=== PATIENT | male | born 1960 | race Caucasian/White ===

== ENCOUNTER 2021-09-24 18:28 | Inpatient (IN) | payer MEDICAID ==
[~2021-09-24] VITALS: Ht 175.3 cm; Wt 82.1 kg
[2021-09-24 20:26] LABS: Basophils # (auto) 0 10 ^3/uL (0-0.2); Eosinophils # (auto) 0 10 ^3/uL (0-0.8); Eosinophils % (auto) 0.1 % (0.0-7.0); Lymphocytes # (auto) 1.7 10 ^3/uL (0.4-5.4); Neutrophils % (auto) 82.3 % (37.0-80.0)
[2021-09-24 20:27] LABS: Basophils % (auto) 0.2 % (0.0-2.0); Hemoglobin 7.7 g/dL (13.5-17.5); Lymphocytes % (auto) 11.4 % (10.0-50.0); Mean Corpuscular Hemoglobin 25.3 pg (28.0-32.0); Mean Corpuscular Hgb Conc. 31.9 g/dL (32.0-36.0); Mean Corpuscular Volume 79.3 fL (80.0-100.0); Monocytes # (auto) 0.9 10 ^3/uL (0-1.3); Neutrophils # (auto) 12.4 10 ^3/uL (1.6-8.6); Red Blood Cells 3.02 10^6/uL (4.5-5.90); Red Cell Distribution Width 16.4 % (11.8-14.3); White Blood Cell 15.1 10^3/uL (4.4-10.8)
[2021-09-24 20:41] LABS: INR 1.1 (0.9-1.15)
[2021-09-24 20:45] LABS: Albumin 1.3 g/dL (3.4-5.0); Magnesium 2.8 mg/dL (1.6-2.6); Potassium 4.8 mmol/L (3.5-5.1)
[2021-09-24 20:49] LABS: Bilirubin, Total 0.6 mg/dL (0.2-1.0)
[2021-09-24 22:14] LABS: Urine Bacteria FEW /hpf (None Seen); Urine Blood 1+ /uL (Negative); Urine Budding Yeast FEW /hpf (None Seen); Urine Mucus FEW (None Seen); Urine WBC 868 /hpf (0 - 3); Urine WBC Clumps PRESENT /hpf (None Seen)
[2021-09-24] MEDS ORDERED: SODIUM CHLORIDE 0.9% 1,000 ML IV ONE (22:45)
[2021-09-24] MEDS ORDERED: PIPERACILLIN-TAZOB 3.375GM 100 ML IV ONE (23:15)
[2021-09-24] MEDS ORDERED: VANCOMYCIN 1GM/250ML 250 ML IV ONE (23:15)
[2021-09-24] MEDS ORDERED: IOHEXOL 300 MG/ML 100ML BOTTLE IJ ONE (23:44)
[2021-09-25] MEDS ORDERED: ONDANSETRON HCL 4 MG/2 ML VIAL IV ONE (02:00)
[2021-09-25] MEDS ORDERED: DOCUSATE SOD 100 MG CAP PO PRN (05:00)
[2021-09-25] MEDS ORDERED: TEMAZEPAM 15 MG CAP PO PRN (05:00)
[2021-09-25] MEDS ORDERED: VANCOMYCIN PER PHARMACY 0 MG IV SCH (05:00)
[2021-09-25] MEDS ORDERED: ONDANSETRON HCL 4 MG/2 ML VIAL IV PRN (05:00)
[2021-09-25] MEDS ORDERED: DEXTROSE (50%) 50ML SYRG IV PRN (05:00)
[2021-09-25] MEDS ORDERED: ACETAMINOPHEN 325 MG TAB PO PRN (05:00)
[2021-09-25] MEDS: ALBUMIN 25% 50 ML IV SCH ×3 (05:27→21:36)
[2021-09-25] MEDS: SODIUM CHLORIDE 0.9% 1,000 ML IV SCH ×2 (05:27→21:37)
[2021-09-25] MEDS ORDERED: NITROGLYCERIN 0.4 MG SL TAB SL PRN (05:45)
[2021-09-25] MEDS ORDERED: MORPHINE SULFATE INJECTION 2 MG/ML SYRG IV PRN (05:45)
[2021-09-25 06:02] LABS: Basophils # (auto) 0.1 10 ^3/uL (0-0.2); Eosinophils # (auto) 0 10 ^3/uL (0-0.8); Eosinophils % (auto) 0.1 % (0.0-7.0); Lymphocytes # (auto) 1.3 10 ^3/uL (0.4-5.4); Mean Corpuscular Hemoglobin 25.7 pg (28.0-32.0); Monocytes # (auto) 0.8 10 ^3/uL (0-1.3); Red Blood Cells 2.78 10^6/uL (4.5-5.90)
[2021-09-25 06:04] LABS: Basophils % (auto) 0.6 % (0.0-2.0); Hematocrit 21.8 % (41.0-53.0); Hemoglobin 7.1 g/dL (13.5-17.5); Lymphocytes % (auto) 9.4 % (10.0-50.0); Mean Corpuscular Hgb Conc. 32.7 g/dL (32.0-36.0); Mean Corpuscular Volume 78.6 fL (80.0-100.0); Monocytes % (auto) 5.6 % (0.0-12.0); Neutrophils # (auto) 11.8 10 ^3/uL (1.6-8.6); Neutrophils % (auto) 84.3 % (37.0-80.0); Red Cell Distribution Width 16.9 % (11.8-14.3)
[2021-09-25 06:17] LABS: Potassium 4.5 mmol/L (3.5-5.1)
[2021-09-25 06:22] LABS: BUN/Creatinine Ratio 29.6
[2021-09-25 06:23] LABS: Albumin 1.2 g/dL (3.4-5.0); Bilirubin, Total 0.5 mg/dL (0.2-1.0); Calcium 7.7 mg/dL (8.5-10.1); Magnesium 2.8 mg/dL (1.6-2.6); Total Protein 6.9 g/dL (6.4-8.2)
[2021-09-25] MEDS: InsuLIN REG 1unit/0.01ml Soln (100units/ml) SC SCH ×4 (07:00→21:39)
[2021-09-25] MEDS: ACCU-CHEK COMFORT CURVE STRIP VI SCH ×4 (07:48→22:11)
[2021-09-25] MEDS: cefTRIAXone 1GM/50ML D5W 50 ML IV SCH (09:00)
[2021-09-25] MEDS ORDERED: CEPH-509 (14:21)
[2021-09-25] MEDS ORDERED: SENN1TAB14 PO (14:21)
[2021-09-25] MEDS ORDERED: HYOS0.1293 (14:21)
[2021-09-25] MEDS ORDERED: ACET-1156 PO (14:21)
[2021-09-25] MEDS ORDERED: MORP30TA PO (14:21)
[2021-09-25] MEDS ORDERED: LORA0.5T20 GT (14:21)
[2021-09-25] MEDS ORDERED: METF-370 PO (14:21)
[2021-09-25] MEDS ORDERED: ONDA-144 PO (14:21)
[2021-09-25] MEDS: MULTIPLE VITAMIN TAB PO SCH (14:45)
[2021-09-25] MEDS: FAMOTIDINE (10MG/ML) 2ML VL IV SCH (14:45)
[2021-09-25] MEDS: ZINC SULFATE 220mg CAP or TAB PO SCH (14:45)
[2021-09-25] MEDS: ASCORBIC ACID 500 MG TAB PO SCH ×2 (14:45→21:38)
[2021-09-25] MEDS: ENOXAPARIN SOD 40 MG/0.4 ML SYRINGE SC SCH (14:45)
[2021-09-25] MEDS: AZITHROMYCIN 500MG/ 250ML 250 ML IV SCH (14:45)
[2021-09-25] MEDS: VANCOMYCIN 1GM/250ML 250 ML IV SCH (16:45)
[2021-09-25] MEDS: SUCRALFATE 1 GM/10 ML ORAL SUSP PO SCH ×2 (17:00→21:38)
[2021-09-25 17:24] VITALS: BP 91/54
[2021-09-25] MEDS: ALBUTEROL SULF 2.5 MG/0.5ML(0.5%) NEB SOLN NEB SCH ×2 (18:47→23:47)
[2021-09-25] MEDS: PANTOPRAZOLE 40 MG/10 ML VIAL INJ IV SCH (21:37)
[2021-09-25 22:07] VITALS: BP 85/41
[2021-09-26] VITALS (8 sets, daily range): BP systolic 110–129; BP diastolic 45–78
[2021-09-26] MEDS: VANCOMYCIN 1GM/250ML 250 ML IV SCH (02:00)
[2021-09-26] MEDS: InsuLIN REG 1unit/0.01ml Soln (100units/ml) SC SCH ×5 (06:47→21:57)
[2021-09-26] MEDS: SUCRALFATE 1 GM/10 ML ORAL SUSP PO SCH ×4 (06:54→21:56)
[2021-09-26] MEDS: ACCU-CHEK COMFORT CURVE STRIP VI SCH ×4 (06:54→21:56)
[2021-09-26 07:03] LABS: Eosinophils # (auto) 0 10 ^3/uL (0-0.8)
[2021-09-26 07:18] LABS: Basophils # (auto) 0.1 10 ^3/uL (0-0.2); Basophils % (auto) 0.5 % (0.0-2.0); Eosinophils % (auto) 0.5 % (0.0-7.0); Hematocrit 18.7 % (41.0-53.0); Lymphocytes # (auto) 1.3 10 ^3/uL (0.4-5.4); Lymphocytes % (auto) 13.7 % (10.0-50.0); Mean Corpuscular Hemoglobin 25.2 pg (28.0-32.0); Mean Corpuscular Hgb Conc. 32.6 g/dL (32.0-36.0); Mean Corpuscular Volume 77.3 fL (80.0-100.0); Monocytes # (auto) 0.5 10 ^3/uL (0-1.3); Monocytes % (auto) 5.9 % (0.0-12.0); Neutrophils # (auto) 7.4 10 ^3/uL (1.6-8.6); Neutrophils % (auto) 79.4 % (37.0-80.0); Red Blood Cells 2.42 10^6/uL (4.5-5.90); Red Cell Distribution Width 16.4 % (11.8-14.3); White Blood Cell 9.3 10^3/uL (4.4-10.8)
[2021-09-26 07:20] LABS: Hemoglobin 6.1 g/dL (13.5-17.5)
[2021-09-26 07:21] LABS: Albumin 1.2 g/dL (3.4-5.0); Calcium 7.2 mg/dL (8.5-10.1); Potassium 3.9 mmol/L (3.5-5.1)
[2021-09-26 07:27] LABS: BUN/Creatinine Ratio 31.5; Bilirubin, Total 0.5 mg/dL (0.2-1.0); Total Protein 6.2 g/dL (6.4-8.2)
[2021-09-26] MEDS: ALBUTEROL SULF 2.5 MG/0.5ML(0.5%) NEB SOLN NEB SCH ×3 (09:22→18:55)
[2021-09-26] MEDS: cefTRIAXone 1GM/50ML D5W 50 ML IV SCH (11:00)
[2021-09-26] MEDS: ASCORBIC ACID 500 MG TAB PO SCH ×2 (11:00→21:56)
[2021-09-26] MEDS: AZITHROMYCIN 500MG/ 250ML 250 ML IV SCH (11:00)
[2021-09-26] MEDS: MULTIPLE VITAMIN TAB PO SCH (11:00)
[2021-09-26] MEDS: FAMOTIDINE (10MG/ML) 2ML VL IV SCH (11:00)
[2021-09-26] MEDS: ZINC SULFATE 220mg CAP or TAB PO SCH (11:00)
[2021-09-26] MEDS: ENOXAPARIN SOD 40 MG/0.4 ML SYRINGE SC SCH (11:00)
[2021-09-26] MEDS: PANTOPRAZOLE 40 MG/10 ML VIAL INJ IV SCH ×2 (11:00→21:55)
[2021-09-26] MEDS: SODIUM CHLORIDE 0.9% 1,000 ML IV SCH (14:00)
[2021-09-26] MEDS ORDERED: VANCOMYCIN 1GM/250ML 250 ML IV SCH (21:00)
[2021-09-26] MEDS ORDERED: PIPERACILLIN-TAZO 4.5GM 100 ML IV SCH (22:00)
[2021-09-27] MEDS: ALBUTEROL SULF 2.5 MG/0.5ML(0.5%) NEB SOLN NEB SCH ×5 (01:09→19:01)
[2021-09-27] MEDS: HYDROcodone-ACET 5/325MG TAB PO PRN ×2 (04:09→21:09)
[2021-09-27 05:12] VITALS: BP 130/48
[2021-09-27 05:27] LABS: Basophils # (auto) 0 10 ^3/uL (0-0.2); Basophils % (auto) 0.3 % (0.0-2.0); Eosinophils # (auto) 0 10 ^3/uL (0-0.8); Eosinophils % (auto) 0.4 % (0.0-7.0); Hematocrit 22.8 % (41.0-53.0); Hemoglobin 7.4 g/dL (13.5-17.5); Lymphocytes # (auto) 1.4 10 ^3/uL (0.4-5.4); Lymphocytes % (auto) 11.8 % (10.0-50.0); Mean Corpuscular Hemoglobin 26.5 pg (28.0-32.0); Mean Corpuscular Hgb Conc. 32.7 g/dL (32.0-36.0); Monocytes # (auto) 0.6 10 ^3/uL (0-1.3); Monocytes % (auto) 4.9 % (0.0-12.0); Neutrophils # (auto) 9.5 10 ^3/uL (1.6-8.6); Neutrophils % (auto) 82.6 % (37.0-80.0); Red Blood Cells 2.81 10^6/uL (4.5-5.90); White Blood Cell 11.5 10^3/uL (4.4-10.8)
[2021-09-27 05:50] LABS: Potassium 3.9 mmol/L (3.5-5.1)
[2021-09-27 05:56] LABS: Albumin 1.2 g/dL (3.4-5.0); BUN/Creatinine Ratio 31.8; Bilirubin, Total 0.6 mg/dL (0.2-1.0); Calcium 7.4 mg/dL (8.5-10.1); Total Protein 6.4 g/dL (6.4-8.2)
[2021-09-27] MEDS: SODIUM CHLORIDE 0.9% 1,000 ML IV SCH ×2 (06:10→23:40)
[2021-09-27] MEDS: ACCU-CHEK COMFORT CURVE STRIP VI SCH ×4 (06:10→21:18)
[2021-09-27] MEDS: SUCRALFATE 1 GM/10 ML ORAL SUSP PO SCH ×4 (06:10→21:09)
[2021-09-27 08:11] VITALS: BP 112/49
[2021-09-27] MEDS: MULTIPLE VITAMIN TAB PO SCH (10:50)
[2021-09-27] MEDS: PANTOPRAZOLE 40 MG/10 ML VIAL INJ IV SCH ×2 (10:50→21:08)
[2021-09-27] MEDS: ZINC SULFATE 220mg CAP or TAB PO SCH (10:50)
[2021-09-27] MEDS: FAMOTIDINE (10MG/ML) 2ML VL IV SCH (10:50)
[2021-09-27] MEDS: ENOXAPARIN SOD 40 MG/0.4 ML SYRINGE SC SCH (10:50)
[2021-09-27] MEDS: ASCORBIC ACID 500 MG TAB PO SCH ×2 (10:50→21:09)
[2021-09-27] MEDS: InsuLIN REG 1unit/0.01ml Soln (100units/ml) SC SCH ×3 (12:00→21:18)
[2021-09-27] MEDS ORDERED: diphenhdrAMINE HCL 50 MG/1 ML VL ONE (12:12)
[2021-09-27] MEDS ORDERED: fentaNYL CITRATE 100 MCG/2 ML VL ONE (12:12)
[2021-09-27] MEDS ORDERED: MIDAZOLAM HCL 5 MG/ML-1ML VIAL ONE (12:12)
[2021-09-27] MEDS ORDERED: LIDOCAINE VISCOUS 2% 15ML UD ONE (12:12)
[2021-09-27] MEDS ORDERED: MEROPENEM 1GM IVPB 100 ML IV SCH (14:00)
[2021-09-27 15:00] VITALS: BP 105/46
[2021-09-27] MEDS: MEROPENEM 1GM IVPB 100 ML IV SCH (18:30)
[2021-09-27 22:00] VITALS: BP 104/43
[2021-09-28] MEDS: MEROPENEM 1GM IVPB 100 ML IV SCH ×3 (02:37→18:30)
[2021-09-28 04:10] VITALS: BP 125/49
[2021-09-28] MEDS: ALBUTEROL SULF 2.5 MG/0.5ML(0.5%) NEB SOLN NEB SCH ×4 (06:00→18:00)
[2021-09-28] MEDS: ACCU-CHEK COMFORT CURVE STRIP VI SCH ×4 (06:17→21:34)
[2021-09-28] MEDS: InsuLIN REG 1unit/0.01ml Soln (100units/ml) SC SCH ×4 (06:17→21:34)
[2021-09-28] MEDS: SUCRALFATE 1 GM/10 ML ORAL SUSP PO SCH ×4 (06:17→21:33)
[2021-09-28 06:54] LABS: Eosinophils # (auto) 0.1 10 ^3/uL (0-0.8); Lymphocytes # (auto) 1.4 10 ^3/uL (0.4-5.4); Monocytes # (auto) 0.7 10 ^3/uL (0-1.3); Monocytes % (auto) 6.2 % (0.0-12.0)
[2021-09-28 06:56] LABS: Basophils # (auto) 0 10 ^3/uL (0-0.2); Basophils % (auto) 0.4 % (0.0-2.0); Eosinophils % (auto) 0.7 % (0.0-7.0); Hematocrit 25.8 % (41.0-53.0); Hemoglobin 8.1 g/dL (13.5-17.5); Lymphocytes % (auto) 12.8 % (10.0-50.0); Mean Corpuscular Hemoglobin 25.8 pg (28.0-32.0); Mean Corpuscular Hgb Conc. 31.6 g/dL (32.0-36.0); Mean Corpuscular Volume 81.7 fL (80.0-100.0); Neutrophils # (auto) 8.7 10 ^3/uL (1.6-8.6); Neutrophils % (auto) 79.9 % (37.0-80.0); Red Blood Cells 3.15 10^6/uL (4.5-5.90); White Blood Cell 10.9 10^3/uL (4.4-10.8)
[2021-09-28 07:10] LABS: Albumin 1.2 g/dL (3.4-5.0); BUN/Creatinine Ratio 31.5; Calcium 7.6 mg/dL (8.5-10.1); Potassium 3.9 mmol/L (3.5-5.1)
[2021-09-28 07:13] LABS: Bilirubin, Total 0.5 mg/dL (0.2-1.0); Total Protein 6.3 g/dL (6.4-8.2)
[2021-09-28 09:00] VITALS: BP 97/54
[2021-09-28] MEDS: ASCORBIC ACID 500 MG TAB PO SCH ×2 (10:00→21:33)
[2021-09-28] MEDS ORDERED: VANCOMYCIN PER PHARMACY 0 MG IV SCH (10:45)
[2021-09-28] MEDS ORDERED: VANCOMYCIN 1GM/250ML 250 ML IV ONE ×2 (10:45→14:00)
[2021-09-28] MEDS: FAMOTIDINE (10MG/ML) 2ML VL IV SCH (10:52)
[2021-09-28] MEDS: ZINC SULFATE 220mg CAP or TAB PO SCH (10:53)
[2021-09-28] MEDS: PANTOPRAZOLE 40 MG/10 ML VIAL INJ IV SCH ×2 (10:53→21:33)
[2021-09-28] MEDS: MULTIPLE VITAMIN TAB PO SCH (10:53)
[2021-09-28] MEDS: ENOXAPARIN SOD 40 MG/0.4 ML SYRINGE SC SCH (10:54)
[2021-09-28 14:00] VITALS: BP 101/54
[2021-09-28 15:12] LABS: INR 1.24 (0.9-1.15); Partial Thromboplastin Time 37.6 sec (23.6-33.0)
[2021-09-28] MEDS ORDERED: TUBERCULIN PPD 5 UNIT/0.1 ML ID ONE (16:00)
[2021-09-28 17:00] VITALS: BP 139/52
[2021-09-28] MEDS: SODIUM CHLORIDE 0.9% 1,000 ML IV SCH (17:05)
[2021-09-28 22:53] VITALS: BP 115/44
[2021-09-29] VITALS (80 sets, daily range): BP systolic 66–128; BP diastolic 41–72
[2021-09-29] MEDS: MEROPENEM 1GM IVPB 100 ML IV SCH ×2 (03:05→10:08)
[2021-09-29] MEDS ORDERED: SUCCINYLCHOLINE CHLORIDE 20 MG/ML 10ML VIAL IV ONE ×2 (03:37→04:45)
[2021-09-29] MEDS ORDERED: ETOMIDATE (2MG/ML) 20ML VIAL IV ONE ×2 (03:37→04:45)
[2021-09-29] MEDS ORDERED: ALBUMIN 5% 0 ML IV ONE (03:48)
[2021-09-29] MEDS: PHENYLEPHRINE IV 250 ML IV SCH ×2 (04:30→21:25)
[2021-09-29 04:38] LABS: Calcium 7.2 mg/dL (8.5-10.1); Potassium 5.3 mmol/L (3.5-5.1)
[2021-09-29 04:41] LABS: Basophils # (auto) 0.1 10 ^3/uL (0-0.2); Eosinophils # (auto) 0 10 ^3/uL (0-0.8); Eosinophils % (auto) 0.1 % (0.0-7.0); Hemoglobin 7.3 g/dL (13.5-17.5)
[2021-09-29 04:41] LABS: BUN/Creatinine Ratio 21.2; Bilirubin, Total 0.4 mg/dL (0.2-1.0); Total Protein 6.7 g/dL (6.4-8.2)
[2021-09-29 04:43] LABS: Basophils % (auto) 0.6 % (0.0-2.0); Hematocrit 22.5 % (41.0-53.0); Lymphocytes # (auto) 1.4 10 ^3/uL (0.4-5.4); Lymphocytes % (auto) 12.5 % (10.0-50.0); Mean Corpuscular Hemoglobin 26.9 pg (28.0-32.0); Mean Corpuscular Hgb Conc. 32.3 g/dL (32.0-36.0); Mean Corpuscular Volume 83.3 fL (80.0-100.0); Monocytes # (auto) 0.8 10 ^3/uL (0-1.3); Neutrophils # (auto) 8.8 10 ^3/uL (1.6-8.6); Neutrophils % (auto) 79.8 % (37.0-80.0); Red Cell Distribution Width 18.3 % (11.8-14.3)
[2021-09-29] MEDS ORDERED: ACETAMINOPHEN 650 mg PER 20.3 mL UD GT PRN (04:45)
[2021-09-29] MEDS: MIDAZOLAM DRIP 50 mg/50mL 50 ML IV SCH (05:00)
[2021-09-29] MEDS: fentaNYL Drip 2500mCg/250mlNS 250 ML IV SCH ×2 (05:00→23:33)
[2021-09-29 05:06] LABS: Albumin 0.8 g/dL (3.4-5.0)
[2021-09-29] MEDS: ALBUTEROL SULF 2.5 MG/0.5ML(0.5%) NEB SOLN NEB SCH ×4 (05:36→22:06)
[2021-09-29] MEDS: SUCRALFATE 1 GM/10 ML ORAL SUSP PO SCH ×4 (05:40→21:32)
[2021-09-29] MEDS: InsuLIN REG 1unit/0.01ml Soln (100units/ml) SC SCH ×4 (05:42→21:53)
[2021-09-29] MEDS: ACCU-CHEK COMFORT CURVE STRIP VI SCH ×4 (05:42→21:48)
[2021-09-29] MEDS: NOREPINEPHRINE 8 MG/250ML KIT 250 ML IV SCH ×2 (08:00→23:29)
[2021-09-29] MEDS ORDERED: NOREPINEPHRINE 8 MG/250ML KIT 250 ML IV ONE (08:00)
[2021-09-29] MEDS: MULTIPLE VITAMIN TAB PO SCH (10:00)
[2021-09-29] MEDS: ALBUMIN 25% 100 ML IV SCH ×2 (10:00→18:00)
[2021-09-29] MEDS: FAMOTIDINE (10MG/ML) 2ML VL IV SCH (10:00)
[2021-09-29] MEDS: ENOXAPARIN SOD 40 MG/0.4 ML SYRINGE SC SCH (10:08)
[2021-09-29] MEDS: PANTOPRAZOLE 40 MG/10 ML VIAL INJ IV SCH ×2 (10:08→21:31)
[2021-09-29] MEDS: ZINC SULFATE 220mg CAP or TAB PO SCH (10:08)
[2021-09-29] MEDS: ASCORBIC ACID 500 MG TAB PO SCH ×2 (10:08→21:32)
[2021-09-29] MEDS ORDERED: VANCOMYCIN 1GM/250ML 250 ML IV SCH (14:00)
[2021-09-29] MEDS: SODIUM CHLOR 0.9% PF (SALINE LOCK) 10ML VIAL/SYR IV SCH (21:31)
[2021-09-29] MEDS: ceFAZolin 2 GM in D5W 5% 100 ML IV SCH (21:48)
[2021-09-29] MEDS: SODIUM CHLORIDE 0.9% 1,000 ML IV SCH (23:26)
[2021-09-30] VITALS (111 sets, daily range): BP systolic 75–122; BP diastolic 42–63
[2021-09-30] MEDS: SODIUM CHLORIDE 0.9% 1,000 ML IV SCH ×2 (01:40→16:16)
[2021-09-30] MEDS: ALBUMIN 25% 100 ML IV SCH (02:00)
[2021-09-30] MEDS: ALBUTEROL SULF 2.5 MG/0.5ML(0.5%) NEB SOLN NEB SCH ×5 (02:11→22:39)
[2021-09-30 03:46] LABS: Basophils # (auto) 0.1 10 ^3/uL (0-0.2); Eosinophils # (auto) 0.1 10 ^3/uL (0-0.8); Eosinophils % (auto) 1.6 % (0.0-7.0); Lymphocytes # (auto) 1.9 10 ^3/uL (0.4-5.4); Neutrophils # (auto) 5.9 10 ^3/uL (1.6-8.6)
[2021-09-30 03:48] LABS: Hematocrit 21.9 % (41.0-53.0); Lymphocytes % (auto) 22.1 % (10.0-50.0); Mean Corpuscular Hgb Conc. 31.2 g/dL (32.0-36.0); Mean Corpuscular Volume 83.1 fL (80.0-100.0); Monocytes # (auto) 0.7 10 ^3/uL (0-1.3); Monocytes % (auto) 7.8 % (0.0-12.0); Neutrophils % (auto) 67.5 % (37.0-80.0); Red Blood Cells 2.64 10^6/uL (4.5-5.90); Red Cell Distribution Width 18.4 % (11.8-14.3); White Blood Cell 8.7 10^3/uL (4.4-10.8)
[2021-09-30] MEDS: MIDAZOLAM DRIP 50 mg/50mL 50 ML IV SCH ×3 (04:00→21:58)
[2021-09-30 04:01] LABS: Hemoglobin 6.8 g/dL (13.5-17.5)
[2021-09-30 04:07] LABS: Albumin 2.2 g/dL (3.4-5.0); BUN/Creatinine Ratio 26.2; Potassium 3.4 mmol/L (3.5-5.1)
[2021-09-30 04:10] LABS: Bilirubin, Total 0.4 mg/dL (0.2-1.0); Total Protein 6.1 g/dL (6.4-8.2)
[2021-09-30] MEDS: PHENYLEPHRINE IV 250 ML IV SCH ×3 (05:45→22:25)
[2021-09-30] MEDS: InsuLIN REG 1unit/0.01ml Soln (100units/ml) SC SCH ×4 (06:10→22:00)
[2021-09-30] MEDS: ACCU-CHEK COMFORT CURVE STRIP VI SCH ×4 (06:10→22:13)
[2021-09-30] MEDS: ceFAZolin 2 GM in D5W 5% 100 ML IV SCH ×3 (06:25→22:19)
[2021-09-30] MEDS: SUCRALFATE 1 GM/10 ML ORAL SUSP PO SCH ×4 (06:26→22:13)
[2021-09-30 08:32] LABS: Hemoglobin 7.4 g/dL (13.5-17.5)
[2021-09-30 08:34] LABS: Hematocrit 23.8 % (41.0-53.0)
[2021-09-30] MEDS: NOREPINEPHRINE 8 MG/250ML KIT 250 ML IV SCH ×3 (09:07→22:50)
[2021-09-30] MEDS ORDERED: LIDOCAINE HCL 2% TOP JELLY 5ML TOP ONE (09:09)
[2021-09-30] MEDS ORDERED: EPINEPHrine HCL 1 MG/10 ML SYRG ONE (09:09)
[2021-09-30] MEDS ORDERED: EPINEPHrine HCL 1 MG/1 ML AMP ONE (09:09)
[2021-09-30] MEDS ORDERED: NALOXONE HCL 0.4 MG/ML VIAL ONE (09:09)
[2021-09-30] MEDS ORDERED: FLUMAZENIL 0.1 MG/ML INJ 10ML MDV IV ONE (09:09)
[2021-09-30] MEDS ORDERED: LIDOCAINE 2%HCL (LOCAL ANESTH.) INJ 20ML MDV ONE (09:09)
[2021-09-30] MEDS ORDERED: GLYCOPYRROLATE 0.2 MG/ML 1ML VIAL ONE (09:09)
[2021-09-30] MEDS ORDERED: fentaNYL CITRATE 100 MCG/2 ML VL ONE (09:10)
[2021-09-30] MEDS ORDERED: MIDAZOLAM HCL 5 MG/ML-1ML VIAL ONE (09:10)
[2021-09-30] MEDS: PANTOPRAZOLE 40 MG/10 ML VIAL INJ IV SCH ×2 (10:00→22:13)
[2021-09-30] MEDS: MULTIPLE VITAMIN TAB PO SCH (10:00)
[2021-09-30] MEDS: ENOXAPARIN SOD 40 MG/0.4 ML SYRINGE SC SCH (10:00)
[2021-09-30] MEDS: SODIUM CHLOR 0.9% PF (SALINE LOCK) 10ML VIAL/SYR IV SCH ×2 (10:00→22:13)
[2021-09-30] MEDS: ACETYLCYSTEINE 20%(200MG/ML) SOL 4ML NEB SCH ×2 (11:31→22:40)
[2021-09-30] MEDS ORDERED: ACETYLCYSTEINE 10 %(100MG/ML) SOL 4ML ONE (12:05)
[2021-09-30 19:39] LABS: Hemoglobin 8.9 g/dL (13.5-17.5)
[2021-09-30 19:41] LABS: Hematocrit 28.2 % (41.0-53.0)
[2021-10-01] VITALS (101 sets, daily range): BP systolic 49–123; BP diastolic 27–67
[2021-10-01] MEDS: fentaNYL Drip 2500mCg/250mlNS 250 ML IV SCH ×2 (00:32→19:45)
[2021-10-01] MEDS: NOREPINEPHRINE 8 MG/250ML KIT 250 ML IV SCH ×3 (04:11→13:17)
[2021-10-01 04:59] LABS: Basophils # (auto) 0.1 10 ^3/uL (0-0.2); Basophils % (auto) 0.9 % (0.0-2.0); Eosinophils # (auto) 0.1 10 ^3/uL (0-0.8); Eosinophils % (auto) 1.1 % (0.0-7.0); Hematocrit 26.7 % (41.0-53.0); Hemoglobin 8.9 g/dL (13.5-17.5); Lymphocytes # (auto) 1.8 10 ^3/uL (0.4-5.4); Mean Corpuscular Hemoglobin 27.5 pg (28.0-32.0); Mean Corpuscular Hgb Conc. 33.1 g/dL (32.0-36.0); Mean Corpuscular Volume 83.2 fL (80.0-100.0); Monocytes # (auto) 0.4 10 ^3/uL (0-1.3); Monocytes % (auto) 4.1 % (0.0-12.0); Neutrophils # (auto) 8.3 10 ^3/uL (1.6-8.6); Neutrophils % (auto) 76.9 % (37.0-80.0); Red Blood Cells 3.21 10^6/uL (4.5-5.90); Red Cell Distribution Width 17.2 % (11.8-14.3); White Blood Cell 10.9 10^3/uL (4.4-10.8)
[2021-10-01 05:33] LABS: Albumin 1.6 g/dL (3.4-5.0); Anion Gap 11 (5-15); Blood Urea Nitrogen 15 mg/dL (7-18); Calcium 7.4 mg/dL (8.5-10.1); Carbon Dioxide 23 mmol/L (21-32); Chloride 111 mmol/L (98-107); Glucose 140 mg/dL (74-106); Potassium 3.3 mmol/L (3.5-5.1); Sodium 145 mmol/L (136-145)
[2021-10-01 05:36] LABS: Alanine Aminotransferase < 6 U/L (16-61); Aspartate Aminotransferase 12 U/L (15-37); BUN/Creatinine Ratio 20.5; GFR African American 140 mL/min; GFR Non-African American 116 mL/min
[2021-10-01 05:39] LABS: Alkaline Phosphatase 83 U/L (45-117); Bilirubin, Total 0.3 mg/dL (0.2-1.0); Total Protein 5.7 g/dL (6.4-8.2)
[2021-10-01] MEDS: ceFAZolin 2 GM in D5W 5% 100 ML IV SCH ×3 (05:56→21:59)
[2021-10-01] MEDS: InsuLIN REG 1unit/0.01ml Soln (100units/ml) SC SCH ×4 (06:04→21:58)
[2021-10-01] MEDS: ACCU-CHEK COMFORT CURVE STRIP VI SCH ×4 (06:04→21:58)
[2021-10-01] MEDS: SUCRALFATE 1 GM/10 ML ORAL SUSP PO SCH ×4 (06:06→21:58)
[2021-10-01] MEDS: PHENYLEPHRINE IV 250 ML IV SCH (06:45)
[2021-10-01] MEDS: MIDAZOLAM DRIP 50 mg/50mL 50 ML IV SCH (09:24)
[2021-10-01] MEDS: SODIUM CHLOR 0.9% PF (SALINE LOCK) 10ML VIAL/SYR IV SCH ×2 (10:00→21:58)
[2021-10-01] MEDS: ENOXAPARIN SOD 40 MG/0.4 ML SYRINGE SC SCH (10:00)
[2021-10-01] MEDS: ALBUTEROL SULF 2.5 MG/0.5ML(0.5%) NEB SOLN NEB SCH ×3 (10:09→21:35)
[2021-10-01] MEDS: ACETYLCYSTEINE 20%(200MG/ML) SOL 4ML NEB SCH ×3 (10:09→21:35)
[2021-10-01] MEDS: PANTOPRAZOLE 40 MG/10 ML VIAL INJ IV SCH ×2 (10:12→21:58)
[2021-10-01] MEDS: MULTIPLE VITAMIN TAB PO SCH (10:13)
[2021-10-01] MEDS: ALBUMIN 25% 50 ML IV SCH ×2 (10:13→18:21)
[2021-10-01] MEDS: SODIUM CHLORIDE 0.9% 1,000 ML IV SCH (13:16)
[2021-10-01] MEDS: POTASSIUM CHL 20MEQ/50ML 50 ML IV SCH ×2 (15:54→17:34)
[2021-10-02] VITALS (90 sets, daily range): BP systolic 72–190; BP diastolic 34–80
[2021-10-02] MEDS: ALBUMIN 25% 50 ML IV SCH (01:46)
[2021-10-02] MEDS: SODIUM CHLORIDE 0.9% 1,000 ML IV SCH ×3 (03:40→20:20)
[2021-10-02 05:24] LABS: Basophils # (auto) 0.1 10 ^3/uL (0-0.2); Eosinophils # (auto) 0.1 10 ^3/uL (0-0.8); Hemoglobin 8.4 g/dL (13.5-17.5)
[2021-10-02 05:28] LABS: Basophils % (auto) 0.9 % (0.0-2.0); Eosinophils % (auto) 1.3 % (0.0-7.0); Hematocrit 25.8 % (41.0-53.0); Lymphocytes # (auto) 1.3 10 ^3/uL (0.4-5.4); Lymphocytes % (auto) 13.4 % (10.0-50.0); Mean Corpuscular Hemoglobin 27.2 pg (28.0-32.0); Mean Corpuscular Hgb Conc. 32.4 g/dL (32.0-36.0); Mean Corpuscular Volume 83.9 fL (80.0-100.0); Monocytes # (auto) 0.5 10 ^3/uL (0-1.3); Monocytes % (auto) 5.3 % (0.0-12.0); Neutrophils # (auto) 7.7 10 ^3/uL (1.6-8.6); Neutrophils % (auto) 79.1 % (37.0-80.0); Red Blood Cells 3.08 10^6/uL (4.5-5.90); White Blood Cell 9.7 10^3/uL (4.4-10.8)
[2021-10-02] MEDS: ACETYLCYSTEINE 20%(200MG/ML) SOL 4ML NEB SCH ×3 (05:41→18:03)
[2021-10-02] MEDS: ALBUTEROL SULF 2.5 MG/0.5ML(0.5%) NEB SOLN NEB SCH ×3 (05:41→18:03)
[2021-10-02 06:07] LABS: Albumin 1.9 g/dL (3.4-5.0); Anion Gap 7 (5-15); Blood Urea Nitrogen 17 mg/dL (7-18); Calcium 7.3 mg/dL (8.5-10.1); Carbon Dioxide 23 mmol/L (21-32); Chloride 116 mmol/L (98-107); Glucose 130 mg/dL (74-106); Potassium 3.4 mmol/L (3.5-5.1); Sodium 146 mmol/L (136-145)
[2021-10-02] MEDS: ceFAZolin 2 GM in D5W 5% 100 ML IV SCH (06:09)
[2021-10-02] MEDS: SUCRALFATE 1 GM/10 ML ORAL SUSP PO SCH ×4 (06:09→22:45)
[2021-10-02] MEDS: InsuLIN REG 1unit/0.01ml Soln (100units/ml) SC SCH ×4 (06:10→22:45)
[2021-10-02] MEDS: ACCU-CHEK COMFORT CURVE STRIP VI SCH ×4 (06:10→22:45)
[2021-10-02 06:12] LABS: Alanine Aminotransferase < 6 U/L (16-61); Alkaline Phosphatase 91 U/L (45-117); Aspartate Aminotransferase 8 U/L (15-37); BUN/Creatinine Ratio 19.1; Bilirubin, Total 0.4 mg/dL (0.2-1.0); GFR African American 111 mL/min; GFR Non-African American 92 mL/min; Total Protein 5.6 g/dL (6.4-8.2)
[2021-10-02] MEDS: PHENYLEPHRINE IV 250 ML IV SCH ×4 (06:17→16:05)
[2021-10-02] MEDS: NOREPINEPHRINE 8 MG/250ML KIT 250 ML IV SCH ×3 (06:18→15:56)
[2021-10-02] MEDS: PANTOPRAZOLE 40 MG/10 ML VIAL INJ IV SCH ×2 (10:25→22:45)
[2021-10-02] MEDS: SODIUM CHLOR 0.9% PF (SALINE LOCK) 10ML VIAL/SYR IV SCH ×2 (10:26→22:45)
[2021-10-02] MEDS: ENOXAPARIN SOD 40 MG/0.4 ML SYRINGE SC SCH (10:26)
[2021-10-02] MEDS: MULTIPLE VITAMIN TAB PO SCH (10:26)
[2021-10-02] MEDS: MIDAZOLAM DRIP 50 mg/50mL 50 ML IV SCH (13:11)
[2021-10-02] MEDS ORDERED: ACYCLOVIR 10MG/KG Q8HR PER RX 0 ML IV SCH (14:15)
[2021-10-02] MEDS ORDERED: MEROPENEM 1GM IVPB 100 ML IV ONE (14:45)
[2021-10-02] MEDS: fentaNYL Drip 2500mCg/250mlNS 250 ML IV SCH (15:58)
[2021-10-02] MEDS: ACYCLOVIR SOD 50MG/ML 500 MG in D5W 5% 100 ML IV SCH (17:50)
[2021-10-02] MEDS ORDERED: NAFCILLIN SOD 2GM 2 GM in SODIUM CHL 0.9% 100 ML IV SCH (18:00)
[2021-10-02] MEDS: NAFCILLIN SOD 2GM 2 GM in SODIUM CHL 0.9% 100 ML IV SCH (20:19)
[2021-10-02] MEDS: MEROPENEM 1GM IVPB 100 ML IV SCH (22:45)
[2021-10-03] VITALS (80 sets, daily range): BP systolic 95–185; BP diastolic 32–66
[2021-10-03] MEDS: NOREPINEPHRINE 8 MG/250ML KIT 250 ML IV SCH ×2 (00:15→18:34)
[2021-10-03] MEDS: MIDAZOLAM DRIP 50 mg/50mL 50 ML IV SCH ×2 (00:16→09:57)
[2021-10-03] MEDS: PHENYLEPHRINE IV 250 ML IV SCH ×3 (00:25→17:05)
[2021-10-03] MEDS: NAFCILLIN SOD 2GM 2 GM in SODIUM CHL 0.9% 100 ML IV SCH ×6 (01:00→20:18)
[2021-10-03] MEDS: ACYCLOVIR SOD 50MG/ML 500 MG in D5W 5% 100 ML IV SCH ×2 (02:54→09:57)
[2021-10-03 03:59] LABS: Basophils # (auto) 0.1 10 ^3/uL (0-0.2); Eosinophils # (auto) 0.1 10 ^3/uL (0-0.8); Hemoglobin 8.1 g/dL (13.5-17.5); Lymphocytes # (auto) 1.4 10 ^3/uL (0.4-5.4); Monocytes # (auto) 0.4 10 ^3/uL (0-1.3); White Blood Cell 8.6 10^3/uL (4.4-10.8)
[2021-10-03 04:00] LABS: Hematocrit 25.5 % (41.0-53.0); Lymphocytes % (auto) 16.7 % (10.0-50.0); Mean Corpuscular Hemoglobin 26.4 pg (28.0-32.0); Mean Corpuscular Hgb Conc. 31.8 g/dL (32.0-36.0); Mean Corpuscular Volume 83.2 fL (80.0-100.0); Monocytes % (auto) 5.1 % (0.0-12.0); Neutrophils # (auto) 6.6 10 ^3/uL (1.6-8.6); Neutrophils % (auto) 76.2 % (37.0-80.0); Red Blood Cells 3.06 10^6/uL (4.5-5.90); Red Cell Distribution Width 18.2 % (11.8-14.3)
[2021-10-03 04:13] LABS: BUN/Creatinine Ratio 20.7; Calcium 7.5 mg/dL (8.5-10.1); Potassium 3.2 mmol/L (3.5-5.1)
[2021-10-03] MEDS: MEROPENEM 1GM IVPB 100 ML IV SCH ×3 (05:44→22:47)
[2021-10-03] MEDS: ACCU-CHEK COMFORT CURVE STRIP VI SCH ×4 (05:45→22:00)
[2021-10-03] MEDS: InsuLIN REG 1unit/0.01ml Soln (100units/ml) SC SCH ×4 (05:45→22:00)
[2021-10-03] MEDS: SUCRALFATE 1 GM/10 ML ORAL SUSP PO SCH ×4 (05:45→22:48)
[2021-10-03] MEDS: ALBUTEROL SULF 2.5 MG/0.5ML(0.5%) NEB SOLN NEB SCH ×3 (05:57→22:30)
[2021-10-03] MEDS: ACETYLCYSTEINE 20%(200MG/ML) SOL 4ML NEB SCH ×3 (05:58→22:30)
[2021-10-03] MEDS ORDERED: POTASSIUM CHL 20MEQ/50ML 100 ML IV ONE (09:33)
[2021-10-03] MEDS: POTASSIUM CHL 20MEQ/50ML 50 ML IV SCH ×2 (09:56→11:11)
[2021-10-03] MEDS: SODIUM CHLOR 0.9% PF (SALINE LOCK) 10ML VIAL/SYR IV SCH ×2 (10:00→22:48)
[2021-10-03] MEDS: PANTOPRAZOLE 40 MG/10 ML VIAL INJ IV SCH ×2 (11:10→22:47)
[2021-10-03] MEDS: MULTIPLE VITAMIN TAB PO SCH (11:10)
[2021-10-03] MEDS: ENOXAPARIN SOD 40 MG/0.4 ML SYRINGE SC SCH (11:10)
[2021-10-04] VITALS (98 sets, daily range): BP systolic 82–135; BP diastolic 38–52
[2021-10-04] MEDS: PHENYLEPHRINE IV 250 ML IV SCH ×3 (01:25→18:05)
[2021-10-04] MEDS: NAFCILLIN SOD 2GM 2 GM in SODIUM CHL 0.9% 100 ML IV SCH ×6 (01:31→20:00)
[2021-10-04] MEDS: ACYCLOVIR SOD 50MG/ML 500 MG in D5W 5% 100 ML IV SCH ×4 (02:30→18:15)
[2021-10-04 03:53] LABS: Basophils # (auto) 0.1 10 ^3/uL (0-0.2); Eosinophils # (auto) 0.1 10 ^3/uL (0-0.8); Eosinophils % (auto) 1.5 % (0.0-7.0); Hemoglobin 7.8 g/dL (13.5-17.5); Monocytes # (auto) 0.4 10 ^3/uL (0-1.3); Monocytes % (auto) 5.1 % (0.0-12.0); Red Cell Distribution Width 18.4 % (11.8-14.3); White Blood Cell 8.6 10^3/uL (4.4-10.8)
[2021-10-04 03:57] LABS: Basophils % (auto) 0.9 % (0.0-2.0); Hematocrit 24.7 % (41.0-53.0); Lymphocytes # (auto) 1.9 10 ^3/uL (0.4-5.4); Lymphocytes % (auto) 21.7 % (10.0-50.0); Mean Corpuscular Hemoglobin 26.4 pg (28.0-32.0); Mean Corpuscular Hgb Conc. 31.6 g/dL (32.0-36.0); Mean Corpuscular Volume 83.5 fL (80.0-100.0); Neutrophils # (auto) 6.1 10 ^3/uL (1.6-8.6); Neutrophils % (auto) 70.8 % (37.0-80.0); Red Blood Cells 2.95 10^6/uL (4.5-5.90)
[2021-10-04 04:18] LABS: BUN/Creatinine Ratio 17.5; Calcium 7.6 mg/dL (8.5-10.1); Potassium 3.4 mmol/L (3.5-5.1)
[2021-10-04] MEDS: MIDAZOLAM DRIP 50 mg/50mL 50 ML IV SCH ×2 (04:36→12:28)
[2021-10-04] MEDS: SODIUM CHLORIDE 0.9% 1,000 ML IV SCH (05:40)
[2021-10-04] MEDS: MEROPENEM 1GM IVPB 100 ML IV SCH ×3 (06:00→21:50)
[2021-10-04] MEDS: fentaNYL Drip 2500mCg/250mlNS 250 ML IV SCH ×2 (06:00→12:36)
[2021-10-04] MEDS: NOREPINEPHRINE 8 MG/250ML KIT 250 ML IV SCH (06:01)
[2021-10-04] MEDS: ALBUTEROL SULF 2.5 MG/0.5ML(0.5%) NEB SOLN NEB SCH ×3 (06:31→19:41)
[2021-10-04] MEDS: ACETYLCYSTEINE 20%(200MG/ML) SOL 4ML NEB SCH ×3 (06:31→19:41)
[2021-10-04] MEDS: InsuLIN REG 1unit/0.01ml Soln (100units/ml) SC SCH ×4 (07:00→22:00)
[2021-10-04] MEDS: SUCRALFATE 1 GM/10 ML ORAL SUSP PO SCH ×4 (07:00→21:50)
[2021-10-04] MEDS: ACCU-CHEK COMFORT CURVE STRIP VI SCH ×4 (07:01→22:00)
[2021-10-04] MEDS: MULTIPLE VITAMIN TAB PO SCH (09:49)
[2021-10-04] MEDS: ENOXAPARIN SOD 40 MG/0.4 ML SYRINGE SC SCH (09:49)
[2021-10-04] MEDS: PANTOPRAZOLE 40 MG/10 ML VIAL INJ IV SCH ×2 (09:49→21:50)
[2021-10-04] MEDS: SODIUM CHLOR 0.9% PF (SALINE LOCK) 10ML VIAL/SYR IV SCH ×2 (09:50→21:50)
[2021-10-04] MEDS ORDERED: Glucerna 1.2 Cal 1Liter BOTTLE GT SCH (14:00)
[2021-10-04] MEDS: POTASSIUM CHL 20MEQ/50ML 50 ML IV SCH ×2 (14:34→16:30)
[2021-10-05] VITALS (97 sets, daily range): BP systolic 71–142; BP diastolic 29–55
[2021-10-05] MEDS: NAFCILLIN SOD 2GM 2 GM in SODIUM CHL 0.9% 100 ML IV SCH ×6 (01:08→19:31)
[2021-10-05] MEDS: ACYCLOVIR SOD 50MG/ML 500 MG in D5W 5% 100 ML IV SCH ×3 (02:06→17:06)
[2021-10-05] MEDS: PHENYLEPHRINE IV 250 ML IV SCH ×3 (02:07→17:04)
[2021-10-05] MEDS: InsuLIN REG 1unit/0.01ml Soln (100units/ml) SC SCH ×4 (06:14→22:00)
[2021-10-05] MEDS: SUCRALFATE 1 GM/10 ML ORAL SUSP PO SCH ×4 (06:14→20:50)
[2021-10-05] MEDS: ACCU-CHEK COMFORT CURVE STRIP VI SCH ×4 (06:14→22:01)
[2021-10-05] MEDS: MEROPENEM 1GM IVPB 100 ML IV SCH ×3 (06:14→20:50)
[2021-10-05] MEDS: NOREPINEPHRINE 8 MG/250ML KIT 250 ML IV SCH (09:58)
[2021-10-05] MEDS: SODIUM CHLOR 0.9% PF (SALINE LOCK) 10ML VIAL/SYR IV SCH ×2 (09:59→19:31)
[2021-10-05] MEDS: MULTIPLE VITAMIN TAB PO SCH (09:59)
[2021-10-05] MEDS: PANTOPRAZOLE 40 MG/10 ML VIAL INJ IV SCH ×2 (09:59→20:50)
[2021-10-05] MEDS: ACETYLCYSTEINE 20%(200MG/ML) SOL 4ML NEB SCH ×3 (14:30→22:11)
[2021-10-05] MEDS: ALBUTEROL SULF 2.5 MG/0.5ML(0.5%) NEB SOLN NEB SCH ×3 (14:30→22:11)
[2021-10-06] VITALS (93 sets, daily range): BP systolic 65–132; BP diastolic 35–60
[2021-10-06] MEDS: PHENYLEPHRINE IV 250 ML IV SCH ×4 (00:22→21:56)
[2021-10-06] MEDS: NAFCILLIN SOD 2GM 2 GM in SODIUM CHL 0.9% 100 ML IV SCH ×6 (00:22→21:40)
[2021-10-06] MEDS: ACYCLOVIR SOD 50MG/ML 500 MG in D5W 5% 100 ML IV SCH ×3 (03:54→21:40)
[2021-10-06 04:28] LABS: Hemoglobin 7.7 g/dL (13.5-17.5); Monocytes # (auto) 0.6 10 ^3/uL (0-1.3)
[2021-10-06 04:31] LABS: Basophils # (auto) 0.1 10 ^3/uL (0-0.2); Basophils % (auto) 0.7 % (0.0-2.0); Eosinophils # (auto) 0.1 10 ^3/uL (0-0.8); Eosinophils % (auto) 0.8 % (0.0-7.0); Lymphocytes # (auto) 2.4 10 ^3/uL (0.4-5.4); Lymphocytes % (auto) 14.3 % (10.0-50.0); Mean Corpuscular Hemoglobin 26.7 pg (28.0-32.0); Mean Corpuscular Hgb Conc. 32.3 g/dL (32.0-36.0); Mean Corpuscular Volume 82.8 fL (80.0-100.0); Monocytes % (auto) 3.7 % (0.0-12.0); Neutrophils # (auto) 13.6 10 ^3/uL (1.6-8.6); Neutrophils % (auto) 80.5 % (37.0-80.0); Red Blood Cells 2.89 10^6/uL (4.5-5.90); Red Cell Distribution Width 18.6 % (11.8-14.3); White Blood Cell 16.8 10^3/uL (4.4-10.8)
[2021-10-06 04:47] LABS: Potassium 3.9 mmol/L (3.5-5.1)
[2021-10-06 04:49] LABS: BUN/Creatinine Ratio 16.4
[2021-10-06] MEDS: fentaNYL Drip 2500mCg/250mlNS 250 ML IV SCH (06:00)
[2021-10-06] MEDS: MEROPENEM 1GM IVPB 100 ML IV SCH ×3 (06:17→21:46)
[2021-10-06] MEDS: MIDAZOLAM DRIP 50 mg/50mL 50 ML IV SCH ×2 (06:17→17:41)
[2021-10-06] MEDS: SUCRALFATE 1 GM/10 ML ORAL SUSP PO SCH ×4 (06:18→21:46)
[2021-10-06] MEDS: InsuLIN REG 1unit/0.01ml Soln (100units/ml) SC SCH ×4 (06:18→21:56)
[2021-10-06] MEDS: ALBUTEROL SULF 2.5 MG/0.5ML(0.5%) NEB SOLN NEB SCH ×3 (06:18→18:43)
[2021-10-06] MEDS: ACCU-CHEK COMFORT CURVE STRIP VI SCH ×4 (06:18→21:56)
[2021-10-06] MEDS: ACETYLCYSTEINE 20%(200MG/ML) SOL 4ML NEB SCH ×3 (06:19→18:43)
[2021-10-06] MEDS: NOREPINEPHRINE 8 MG/250ML KIT 250 ML IV SCH (08:00)
[2021-10-06] MEDS: SODIUM CHLOR 0.9% PF (SALINE LOCK) 10ML VIAL/SYR IV SCH ×2 (12:21→21:40)
[2021-10-06] MEDS: PANTOPRAZOLE 40 MG/10 ML VIAL INJ IV SCH ×2 (12:21→21:46)
[2021-10-06] MEDS: MULTIPLE VITAMIN TAB PO SCH (12:24)
[2021-10-07] VITALS (96 sets, daily range): BP systolic 91–138; BP diastolic 39–70
[2021-10-07] MEDS: NAFCILLIN SOD 2GM 2 GM in SODIUM CHL 0.9% 100 ML IV SCH ×6 (01:28→21:54)
[2021-10-07] MEDS: ACYCLOVIR SOD 50MG/ML 500 MG in D5W 5% 100 ML IV SCH ×3 (01:28→18:00)
[2021-10-07] MEDS: MEROPENEM 1GM IVPB 100 ML IV SCH ×3 (05:45→21:59)
[2021-10-07] MEDS: ACCU-CHEK COMFORT CURVE STRIP VI SCH ×4 (05:46→21:55)
[2021-10-07] MEDS: fentaNYL Drip 2500mCg/250mlNS 250 ML IV SCH (06:00)
[2021-10-07] MEDS: SUCRALFATE 1 GM/10 ML ORAL SUSP PO SCH ×4 (06:20→21:55)
[2021-10-07] MEDS: InsuLIN REG 1unit/0.01ml Soln (100units/ml) SC SCH ×4 (06:20→21:55)
[2021-10-07] MEDS: ACETYLCYSTEINE 20%(200MG/ML) SOL 4ML NEB SCH ×3 (06:30→21:51)
[2021-10-07] MEDS: ALBUTEROL SULF 2.5 MG/0.5ML(0.5%) NEB SOLN NEB SCH ×3 (06:30→21:51)
[2021-10-07] MEDS: NOREPINEPHRINE 8 MG/250ML KIT 250 ML IV SCH (08:00)
[2021-10-07] MEDS: PANTOPRAZOLE 40 MG/10 ML VIAL INJ IV SCH ×3 (10:00→21:54)
[2021-10-07] MEDS: SODIUM CHLOR 0.9% PF (SALINE LOCK) 10ML VIAL/SYR IV SCH ×2 (10:28→21:54)
[2021-10-07] MEDS: MULTIPLE VITAMIN TAB PO SCH (10:29)
[2021-10-07] MEDS: PHENYLEPHRINE IV 250 ML IV SCH ×2 (12:45→21:05)
[2021-10-07] MEDS ORDERED: TPN PER PHARMACY 0 ML IV SCH (16:15)
[2021-10-07] MEDS ORDERED: AMINO ACID INFUSION IN D10W 1,000 ML IV NR (20:00)
[2021-10-07 20:04] LABS: Anion Gap 7 (5-15); Blood Urea Nitrogen 41 mg/dL (7-18); Calcium 6.8 mg/dL (8.5-10.1); Carbon Dioxide 18 mmol/L (21-32); Chloride 124 mmol/L (98-107); Glucose 89 mg/dL (74-106); Magnesium 2.8 mg/dL (1.6-2.6); Potassium 4.8 mmol/L (3.5-5.1); Sodium 149 mmol/L (136-145)
[2021-10-07 20:07] LABS: Alanine Aminotransferase < 6 U/L (16-61); Alkaline Phosphatase 139 U/L (45-117); Aspartate Aminotransferase 26 U/L (15-37); BUN/Creatinine Ratio 15.1; Bilirubin, Total 2.4 mg/dL (0.2-1.0); GFR African American 31 mL/min; GFR Non-African American 25 mL/min; Phosphorus 6.7 mg/dL (2.5-4.90); Total Protein 5.8 g/dL (6.4-8.2)
[2021-10-08] VITALS (100 sets, daily range): BP systolic 87–130; BP diastolic 41–57
[2021-10-08] MEDS ORDERED: DEXTROSE (50%) 50ML SYRG IV SCH
[2021-10-08] MEDS: ACCU-CHEK COMFORT CURVE STRIP VI SCH ×4 (00:09→18:00)
[2021-10-08] MEDS: NAFCILLIN SOD 2GM 2 GM in SODIUM CHL 0.9% 100 ML IV SCH ×6 (00:15→20:50)
[2021-10-08] MEDS: ACYCLOVIR SOD 50MG/ML 500 MG in D5W 5% 100 ML IV SCH ×4 (01:41→19:56)
[2021-10-08] MEDS: fentaNYL Drip 2500mCg/250mlNS 250 ML IV SCH (01:42)
[2021-10-08] MEDS: MIDAZOLAM DRIP 50 mg/50mL 50 ML IV SCH (01:42)
[2021-10-08] MEDS: PHENYLEPHRINE IV 250 ML IV SCH ×3 (01:42→22:05)
[2021-10-08 05:09] LABS: Chloride 118 mmol/L (98-107); Potassium 3.5 mmol/L (3.5-5.1); Sodium 145 mmol/L (136-145)
[2021-10-08 05:27] LABS: Alanine Aminotransferase < 6 U/L (16-61); Alkaline Phosphatase 130 U/L (45-117); Anion Gap 9 (5-15); Aspartate Aminotransferase 16 U/L (15-37); BUN/Creatinine Ratio 15.8; Blood Urea Nitrogen 44 mg/dL (7-18); Calcium 6.6 mg/dL (8.5-10.1); Carbon Dioxide 18 mmol/L (21-32); GFR African American 30 mL/min; GFR Non-African American 25 mL/min; Glucose 358 mg/dL (74-106); Magnesium 2.7 mg/dL (1.6-2.6); Phosphorus 6.7 mg/dL (2.5-4.90); Pre Albumin < 3.0 mg/dL (20.0-40.0); Total Protein 5.8 g/dL (6.4-8.2); Triglycerides 125 mg/dL (< 150)
[2021-10-08] MEDS: ACETYLCYSTEINE 20%(200MG/ML) SOL 4ML NEB SCH ×3 (06:01→22:34)
[2021-10-08] MEDS: ALBUTEROL SULF 2.5 MG/0.5ML(0.5%) NEB SOLN NEB SCH ×3 (06:01→22:34)
[2021-10-08] MEDS: MEROPENEM 1GM IVPB 100 ML IV SCH ×3 (07:05→22:25)
[2021-10-08] MEDS: InsuLIN REG 1unit/0.01ml Soln (100units/ml) SC SCH ×4 (07:07→18:00)
[2021-10-08] MEDS: SUCRALFATE 1 GM/10 ML ORAL SUSP PO SCH ×4 (07:07→22:26)
[2021-10-08] MEDS: NOREPINEPHRINE 8 MG/250ML KIT 250 ML IV SCH ×2 (08:00→23:19)
[2021-10-08] MEDS ORDERED: POTASSIUM CHL 20MEQ/50ML 50 ML IV ONE (09:45)
[2021-10-08] MEDS: PANTOPRAZOLE 40 MG/10 ML VIAL INJ IV SCH ×2 (10:37→22:25)
[2021-10-08] MEDS: SODIUM CHLOR 0.9% PF (SALINE LOCK) 10ML VIAL/SYR IV SCH ×2 (10:37→22:26)
[2021-10-08] MEDS: MULTIPLE VITAMIN TAB PO SCH (10:38)
[2021-10-08] MEDS: SODIUM BICARBONATE 50ML VIAL 150 ML in D5W 5% 1,000 ML IV SCH (14:30)
[2021-10-08] MEDS ORDERED: AMINO ACID INFUSION IN D10W 1,000 ML IV NR (20:00)
[2021-10-08] MEDS ORDERED: TPN PER PHARMACY IV NR ×4 (20:00)
[2021-10-09] VITALS (72 sets, daily range): BP systolic 93–148; BP diastolic 43–64
[2021-10-09] MEDS: SODIUM BICARBONATE 50ML VIAL 150 ML in D5W 5% 1,000 ML IV SCH ×3 (00:18→18:00)
[2021-10-09] MEDS: ACCU-CHEK COMFORT CURVE STRIP VI SCH ×4 (00:19→17:17)
[2021-10-09] MEDS: NAFCILLIN SOD 2GM 2 GM in SODIUM CHL 0.9% 100 ML IV SCH ×7 (00:55→20:26)
[2021-10-09] MEDS: ACYCLOVIR SOD 50MG/ML 500 MG in D5W 5% 100 ML IV SCH ×3 (03:12→21:00)
[2021-10-09 04:41] LABS: Mean Corpuscular Hemoglobin 27.5 pg (28.0-32.0); Mean Corpuscular Hgb Conc. 33.1 g/dL (32.0-36.0); Mean Corpuscular Volume 82.9 fL (80.0-100.0); Red Blood Cells 2.53 10^6/uL (4.5-5.90); Red Cell Distribution Width 19.7 % (11.8-14.3); White Blood Cell 10.3 10^3/uL (4.4-10.8)
[2021-10-09] MEDS: MIDAZOLAM DRIP 50 mg/50mL 50 ML IV SCH (04:45)
[2021-10-09 04:58] LABS: Anion Gap 9 (5-15); Blood Urea Nitrogen 50 mg/dL (7-18); Calcium 6.7 mg/dL (8.5-10.1); Carbon Dioxide 20 mmol/L (21-32); Chloride 118 mmol/L (98-107); Glucose 160 mg/dL (74-106); Magnesium 1.8 mg/dL (1.6-2.6); Potassium 3.5 mmol/L (3.5-5.1); Sodium 147 mmol/L (136-145)
[2021-10-09 05:00] LABS: Alanine Aminotransferase < 6 U/L (16-61); Aspartate Aminotransferase 14 U/L (15-37); BUN/Creatinine Ratio 16.4; GFR African American 27 mL/min; GFR Non-African American 22 mL/min
[2021-10-09 05:03] LABS: Alkaline Phosphatase 106 U/L (45-117); Bilirubin, Total 2.2 mg/dL (0.2-1.0); Phosphorus 5.9 mg/dL (2.5-4.90); Total Protein 5.6 g/dL (6.4-8.2)
[2021-10-09 05:23] LABS: Albumin 0.9 g/dL (3.4-5.0)
[2021-10-09 05:25] LABS: Basophils % (manual) 0 (0.0-2.0); Blast Cells 0; Promyelocytes % 0; Reactive Lymphocytes 0
[2021-10-09] MEDS: InsuLIN REG 1unit/0.01ml Soln (100units/ml) SC SCH ×4 (05:39→17:17)
[2021-10-09] MEDS: SUCRALFATE 1 GM/10 ML ORAL SUSP PO SCH ×4 (05:40→22:30)
[2021-10-09] MEDS: MEROPENEM 1GM IVPB 100 ML IV SCH ×3 (05:41→22:31)
[2021-10-09] MEDS: PHENYLEPHRINE IV 250 ML IV SCH ×3 (06:25→23:05)
[2021-10-09] MEDS: ALBUTEROL SULF 2.5 MG/0.5ML(0.5%) NEB SOLN NEB SCH ×3 (06:36→22:45)
[2021-10-09] MEDS: ACETYLCYSTEINE 20%(200MG/ML) SOL 4ML NEB SCH ×3 (06:36→22:45)
[2021-10-09 06:44] LABS: Band Neutrophils % (manual) 4; Eosinophils % (manual) 4 (0-7); Lymphocytes % (manual) 22 (10.0-50.0); Metamyelocytes % 1; Monocytes % (manual) 2 (0-12); Myelocytes % 1
[2021-10-09] MEDS: PANTOPRAZOLE 40 MG/10 ML VIAL INJ IV SCH ×2 (10:00→22:30)
[2021-10-09] MEDS: MULTIPLE VITAMIN TAB PO SCH (10:06)
[2021-10-09] MEDS: SODIUM CHLOR 0.9% PF (SALINE LOCK) 10ML VIAL/SYR IV SCH ×2 (10:07→22:00)
[2021-10-09] MEDS: ALBUMIN 25% 100 ML IV SCH ×2 (11:50→21:20)
[2021-10-09] MEDS: FREE WATER GT SCH ×2 (17:23→22:00)
[2021-10-09 18:17] LABS: Urine Bacteria FEW /hpf (None Seen); Urine Blood 1+ /uL (Negative); Urine Budding Yeast MANY /hpf (None Seen); Urine Specific Gravity 1.014 (1.001-1.035); Urine WBC 111 /hpf (0 - 3)
[2021-10-09 18:52] LABS: Protein, Urine 187.9 mg/dL (0.0-11.9)
[2021-10-09] MEDS ORDERED: TPN PER PHARMACY IV NR ×8 (20:00)
[2021-10-10] VITALS (95 sets, daily range): BP systolic 93–138; BP diastolic 41–62
[2021-10-10] MEDS: ACCU-CHEK COMFORT CURVE STRIP VI SCH ×5 (00:14→23:32)
[2021-10-10] MEDS: NAFCILLIN SOD 2GM 2 GM in SODIUM CHL 0.9% 100 ML IV SCH ×7 (00:14→23:32)
[2021-10-10] MEDS: InsuLIN REG 1unit/0.01ml Soln (100units/ml) SC SCH ×5 (00:14→23:32)
[2021-10-10] MEDS: ACYCLOVIR SOD 50MG/ML 500 MG in D5W 5% 100 ML IV SCH ×3 (02:24→18:34)
[2021-10-10] MEDS: FREE WATER GT SCH ×6 (02:24→20:23)
[2021-10-10] MEDS: SODIUM BICARBONATE 50ML VIAL 150 ML in D5W 5% 1,000 ML IV SCH (03:30)
[2021-10-10 04:18] LABS: Basophils # (auto) 0 10 ^3/uL (0-0.2); Eosinophils # (auto) 0.2 10 ^3/uL (0-0.8); Hemoglobin 7.4 g/dL (13.5-17.5); Lymphocytes # (auto) 0.9 10 ^3/uL (0.4-5.4); Monocytes # (auto) 0.2 10 ^3/uL (0-1.3); Neutrophils # (auto) 4.9 10 ^3/uL (1.6-8.6); Nucleated Red Blood Cells % 0.1 %; Red Cell Distribution Width 19.5 % (11.8-14.3); White Blood Cell 6.2 10^3/uL (4.4-10.8)
[2021-10-10 04:21] LABS: Basophils % (auto) 0.6 % (0.0-2.0); Eosinophils % (auto) 2.5 % (0.0-7.0); Hematocrit 21.4 % (41.0-53.0); Mean Corpuscular Hemoglobin 28.5 pg (28.0-32.0); Mean Corpuscular Hgb Conc. 34.6 g/dL (32.0-36.0); Mean Corpuscular Volume 82.2 fL (80.0-100.0); Monocytes % (auto) 2.5 % (0.0-12.0); Neutrophils % (auto) 79.4 % (37.0-80.0)
[2021-10-10 04:35] LABS: Chloride 112 mmol/L (98-107); Sodium 144 mmol/L (136-145)
[2021-10-10 04:44] LABS: Alanine Aminotransferase < 6 U/L (16-61); Albumin 1.3 g/dL (3.4-5.0); Alkaline Phosphatase 79 U/L (45-117); Anion Gap 10 (5-15); Aspartate Aminotransferase 10 U/L (15-37); BUN/Creatinine Ratio 17.3; Bilirubin, Total 1.7 mg/dL (0.2-1.0); Blood Urea Nitrogen 53 mg/dL (7-18); Calcium 6.2 mg/dL (8.5-10.1); Carbon Dioxide 22 mmol/L (21-32); GFR African American 27 mL/min; GFR Non-African American 22 mL/min; Glucose 160 mg/dL (74-106); Magnesium 2.2 mg/dL (1.6-2.6); Phosphorus 5.4 mg/dL (2.5-4.90)
[2021-10-10] MEDS: MIDAZOLAM DRIP 50 mg/50mL 50 ML IV SCH (04:45)
[2021-10-10 04:48] LABS: Potassium 2.7 mmol/L (3.5-5.1)
[2021-10-10] MEDS: MEROPENEM 1GM IVPB 100 ML IV SCH ×3 (05:23→22:10)
[2021-10-10] MEDS: SUCRALFATE 1 GM/10 ML ORAL SUSP PO SCH ×4 (05:23→20:25)
[2021-10-10] MEDS ORDERED: POTASSIUM CHL 20MEQ/50ML 50 ML IV ONE (06:07)
[2021-10-10] MEDS: PHENYLEPHRINE IV 250 ML IV SCH ×2 (07:25→15:45)
[2021-10-10] MEDS: ACETYLCYSTEINE 20%(200MG/ML) SOL 4ML NEB SCH ×3 (07:48→18:23)
[2021-10-10] MEDS: ALBUTEROL SULF 2.5 MG/0.5ML(0.5%) NEB SOLN NEB SCH ×3 (07:48→18:23)
[2021-10-10] MEDS: POTASSIUM CHL 20MEQ/50ML 50 ML IV SCH ×2 (08:44→10:20)
[2021-10-10] MEDS: ALBUMIN 25% 100 ML IV SCH ×2 (10:24→20:24)
[2021-10-10] MEDS: PANTOPRAZOLE 40 MG/10 ML VIAL INJ IV SCH ×2 (10:28→20:25)
[2021-10-10] MEDS: SODIUM CHLOR 0.9% PF (SALINE LOCK) 10ML VIAL/SYR IV SCH ×2 (10:28→20:25)
[2021-10-10] MEDS: MULTIPLE VITAMIN TAB PO SCH (10:29)
[2021-10-10] MEDS ORDERED: CALCIUM GLUC 1,000mg/50ml-NS 50 ML IV ONE (14:00)
[2021-10-10] MEDS: NOREPINEPHRINE 8 MG/250ML KIT 250 ML IV SCH (14:59)
[2021-10-10] MEDS ORDERED: TPN PER PHARMACY IV NR ×6 (20:00)
[2021-10-11] VITALS (58 sets, daily range): BP systolic 95–147; BP diastolic 45–64
[2021-10-11] MEDS: PHENYLEPHRINE IV 250 ML IV SCH ×3 (00:05→16:45)
[2021-10-11] MEDS: ACYCLOVIR SOD 50MG/ML 500 MG in D5W 5% 100 ML IV SCH ×3 (01:28→16:41)
[2021-10-11] MEDS: FREE WATER GT SCH ×6 (01:28→22:18)
[2021-10-11] MEDS: NAFCILLIN SOD 2GM 2 GM in SODIUM CHL 0.9% 100 ML IV SCH ×5 (03:24→22:14)
[2021-10-11 04:35] LABS: Basophils # (auto) 0 10 ^3/uL (0-0.2); Eosinophils # (auto) 0.2 10 ^3/uL (0-0.8); Monocytes # (auto) 0.2 10 ^3/uL (0-1.3); Nucleated Red Blood Cells % 0.1 %; White Blood Cell 6.3 10^3/uL (4.4-10.8)
[2021-10-11 04:38] LABS: Basophils % (auto) 0.7 % (0.0-2.0); Eosinophils % (auto) 3.4 % (0.0-7.0); Hematocrit 21.1 % (41.0-53.0); Hemoglobin 7.4 g/dL (13.5-17.5); Lymphocytes # (auto) 1.4 10 ^3/uL (0.4-5.4); Lymphocytes % (auto) 21.8 % (10.0-50.0); Mean Corpuscular Hemoglobin 28.8 pg (28.0-32.0); Mean Corpuscular Hgb Conc. 35.4 g/dL (32.0-36.0); Mean Corpuscular Volume 81.4 fL (80.0-100.0); Monocytes % (auto) 3.4 % (0.0-12.0); Neutrophils # (auto) 4.4 10 ^3/uL (1.6-8.6); Neutrophils % (auto) 70.7 % (37.0-80.0); Red Blood Cells 2.59 10^6/uL (4.5-5.90); Red Cell Distribution Width 19.4 % (11.8-14.3)
[2021-10-11 04:45] LABS: Alanine Aminotransferase < 6 U/L (16-61); Albumin 1.4 g/dL (3.4-5.0); Anion Gap 11 (5-15); Aspartate Aminotransferase 13 U/L (15-37); BUN/Creatinine Ratio 17.4; Blood Urea Nitrogen 55 mg/dL (7-18); Calcium 6.4 mg/dL (8.5-10.1); Carbon Dioxide 22 mmol/L (21-32); Chloride 109 mmol/L (98-107); GFR African American 26 mL/min; GFR Non-African American 21 mL/min; Glucose 125 mg/dL (74-106); Magnesium 1.5 mg/dL (1.6-2.6); Sodium 142 mmol/L (136-145)
[2021-10-11] MEDS: MIDAZOLAM DRIP 50 mg/50mL 50 ML IV SCH (04:45)
[2021-10-11 04:48] LABS: Alkaline Phosphatase 67 U/L (45-117); Bilirubin, Total 1.8 mg/dL (0.2-1.0); Phosphorus 3.8 mg/dL (2.5-4.90); Total Protein 4.7 g/dL (6.4-8.2)
[2021-10-11 04:59] LABS: Potassium 2.9 mmol/L (3.5-5.1)
[2021-10-11] MEDS: ACCU-CHEK COMFORT CURVE STRIP VI SCH ×3 (05:27→18:21)
[2021-10-11] MEDS: InsuLIN REG 1unit/0.01ml Soln (100units/ml) SC SCH ×3 (05:28→18:19)
[2021-10-11] MEDS: SUCRALFATE 1 GM/10 ML ORAL SUSP PO SCH ×4 (05:30→22:17)
[2021-10-11] MEDS: ACETYLCYSTEINE 20%(200MG/ML) SOL 4ML NEB SCH ×3 (05:35→22:00)
[2021-10-11] MEDS: ALBUTEROL SULF 2.5 MG/0.5ML(0.5%) NEB SOLN NEB SCH ×3 (05:36→22:00)
[2021-10-11] MEDS: MEROPENEM 1GM IVPB 100 ML IV SCH ×3 (06:00→22:19)
[2021-10-11] MEDS ORDERED: POTASSIUM CHL 20MEQ/50ML 50 ML IV ONE (06:12)
[2021-10-11] MEDS: POTASSIUM CHL 20MEQ/50ML 50 ML IV SCH ×2 (06:15→08:15)
[2021-10-11] MEDS: SODIUM BICARBONATE 50ML VIAL 150 ML in D5W 5% 1,000 ML IV SCH ×3 (08:45→20:15)
[2021-10-11] MEDS ORDERED: POTASSIUM EFFERVESENT TAB 25 MEQ GT ONE (09:00)
[2021-10-11] MEDS: ALBUMIN 25% 100 ML IV SCH (09:26)
[2021-10-11] MEDS: PANTOPRAZOLE 40 MG/10 ML VIAL INJ IV SCH ×2 (09:26→22:16)
[2021-10-11] MEDS: SODIUM CHLOR 0.9% PF (SALINE LOCK) 10ML VIAL/SYR IV SCH ×2 (09:27→22:16)
[2021-10-11] MEDS: MAGNESIUM SULFATE 1GM/100ML 100 ML IV SCH ×2 (09:28→11:57)
[2021-10-11] MEDS: MULTIPLE VITAMIN TAB PO SCH (09:36)
[2021-10-11] MEDS: NOREPINEPHRINE 8 MG/250ML KIT 250 ML IV SCH (16:53)
[2021-10-11] MEDS ORDERED: TPN PER PHARMACY IV NR ×9 (20:00)
[2021-10-12] VITALS (83 sets, daily range): BP systolic 89–152; BP diastolic 47–66
[2021-10-12] MEDS: PHENYLEPHRINE IV 250 ML IV SCH (01:05)
[2021-10-12] MEDS: ACYCLOVIR SOD 50MG/ML 500 MG in D5W 5% 100 ML IV SCH ×3 (02:00→09:25)
[2021-10-12] MEDS: NAFCILLIN SOD 2GM 2 GM in SODIUM CHL 0.9% 100 ML IV SCH ×6 (02:18→21:54)
[2021-10-12] MEDS: FREE WATER GT SCH ×6 (02:20→21:53)
[2021-10-12] MEDS: MIDAZOLAM DRIP 50 mg/50mL 50 ML IV SCH (04:31)
[2021-10-12 04:51] LABS: Basophils # (auto) 0 10 ^3/uL (0-0.2); Eosinophils # (auto) 0.2 10 ^3/uL (0-0.8); Monocytes # (auto) 0.3 10 ^3/uL (0-1.3); Monocytes % (auto) 4.3 % (0.0-12.0); Red Blood Cells 2.51 10^6/uL (4.5-5.90); White Blood Cell 5.9 10^3/uL (4.4-10.8)
[2021-10-12 04:56] LABS: Basophils % (auto) 0.4 % (0.0-2.0); Eosinophils % (auto) 3.5 % (0.0-7.0); Hematocrit 20.5 % (41.0-53.0); Lymphocytes # (auto) 1.2 10 ^3/uL (0.4-5.4); Lymphocytes % (auto) 20.4 % (10.0-50.0); Mean Corpuscular Hemoglobin 27.5 pg (28.0-32.0); Mean Corpuscular Hgb Conc. 33.7 g/dL (32.0-36.0); Mean Corpuscular Volume 81.7 fL (80.0-100.0); Neutrophils # (auto) 4.2 10 ^3/uL (1.6-8.6); Neutrophils % (auto) 71.4 % (37.0-80.0)
[2021-10-12 05:18] LABS: Chloride 104 mmol/L (98-107); Potassium 3.4 mmol/L (3.5-5.1); Sodium 139 mmol/L (136-145)
[2021-10-12 05:31] LABS: Alanine Aminotransferase < 6 U/L (16-61); Albumin 1.2 g/dL (3.4-5.0); Alkaline Phosphatase 65 U/L (45-117); Anion Gap 9 (5-15); Aspartate Aminotransferase 12 U/L (15-37); BUN/Creatinine Ratio 17.4; Bilirubin, Total 1.7 mg/dL (0.2-1.0); Blood Urea Nitrogen 53 mg/dL (7-18); Calcium 6.3 mg/dL (8.5-10.1); Carbon Dioxide 26 mmol/L (21-32); GFR African American 27 mL/min; GFR Non-African American 22 mL/min; Glucose 127 mg/dL (74-106); Magnesium 1.7 mg/dL (1.6-2.6); Phosphorus 3.4 mg/dL (2.5-4.90); Total Protein 4.4 g/dL (6.4-8.2)
[2021-10-12] MEDS: ACCU-CHEK COMFORT CURVE STRIP VI SCH ×4 (05:42→17:33)
[2021-10-12] MEDS: SUCRALFATE 1 GM/10 ML ORAL SUSP PO SCH ×4 (05:43→21:54)
[2021-10-12] MEDS: InsuLIN REG 1unit/0.01ml Soln (100units/ml) SC SCH ×4 (05:43→17:33)
[2021-10-12] MEDS: SODIUM BICARBONATE 50ML VIAL 150 ML in D5W 5% 1,000 ML IV SCH (05:44)
[2021-10-12] MEDS: MEROPENEM 1GM IVPB 100 ML IV SCH (05:44)
[2021-10-12 06:40] LABS: Hemoglobin 6.9 g/dL (13.5-17.5); Red Cell Distribution Width 20.2 % (11.8-14.3)
[2021-10-12] MEDS: PANTOPRAZOLE 40 MG/10 ML VIAL INJ IV SCH ×2 (09:11→21:54)
[2021-10-12] MEDS: MULTIPLE VITAMIN TAB PO SCH (09:11)
[2021-10-12] MEDS: SODIUM CHLOR 0.9% PF (SALINE LOCK) 10ML VIAL/SYR IV SCH ×2 (09:11→21:54)
[2021-10-12] MEDS ORDERED: POTASSIUM CHL 20MEQ/50ML 50 ML IV ONE (09:15)
[2021-10-12] MEDS ORDERED: TPN PER PHARMACY IV NR ×8 (20:00)
[2021-10-12] MEDS: ALBUTEROL SULF 2.5 MG/0.5ML(0.5%) NEB SOLN NEB SCH (22:29)
[2021-10-12] MEDS: ACETYLCYSTEINE 20%(200MG/ML) SOL 4ML NEB SCH (22:30)
[2021-10-12 23:04] LABS: Hematocrit 18.4 % (41.0-53.0)
[2021-10-12 23:12] LABS: Hemoglobin 6.3 g/dL (13.5-17.5)
[2021-10-13] VITALS (41 sets, daily range): BP systolic 42–166; BP diastolic 16–67
[2021-10-13] MEDS: FREE WATER GT SCH ×2 (02:00→06:25)
[2021-10-13 04:18] LABS: Basophils # (auto) 0 10 ^3/uL (0-0.2); Basophils % (auto) 0.5 % (0.0-2.0); Eosinophils # (auto) 0.2 10 ^3/uL (0-0.8); Hematocrit 18.1 % (41.0-53.0); Neutrophils # (auto) 4.3 10 ^3/uL (1.6-8.6)
[2021-10-13 04:21] LABS: Eosinophils % (auto) 3.5 % (0.0-7.0); Lymphocytes # (auto) 1.5 10 ^3/uL (0.4-5.4); Lymphocytes % (auto) 23.4 % (10.0-50.0); Mean Corpuscular Hemoglobin 29.4 pg (28.0-32.0); Mean Corpuscular Hgb Conc. 35.8 g/dL (32.0-36.0); Monocytes # (auto) 0.3 10 ^3/uL (0-1.3); Neutrophils % (auto) 67.6 % (37.0-80.0); Nucleated Red Blood Cells % 0.1 %; White Blood Cell 6.3 10^3/uL (4.4-10.8)
[2021-10-13] MEDS: SODIUM BICARBONATE 50ML VIAL 150 ML in D5W 5% 1,000 ML IV SCH (04:29)
[2021-10-13] MEDS: NAFCILLIN SOD 2GM 2 GM in SODIUM CHL 0.9% 100 ML IV SCH ×4 (04:30→08:00)
[2021-10-13 04:33] LABS: Blood Urea Nitrogen 53 mg/dL (7-18); Chloride 100 mmol/L (98-107); Glucose 135 mg/dL (74-106); Hemoglobin 6.5 g/dL (13.5-17.5); Potassium 3.4 mmol/L (3.5-5.1); Sodium 136 mmol/L (136-145)
[2021-10-13 04:39] LABS: Alanine Aminotransferase < 6 U/L (16-61); Alkaline Phosphatase 65 U/L (45-117); Anion Gap 6 (5-15); Aspartate Aminotransferase 11 U/L (15-37); BUN/Creatinine Ratio 16.9; Bilirubin, Total 1.2 mg/dL (0.2-1.0); Calcium 6.5 mg/dL (8.5-10.1); Carbon Dioxide 30 mmol/L (21-32); GFR African American 26 mL/min; GFR Non-African American 21 mL/min; Phosphorus 3.4 mg/dL (2.5-4.90); Total Protein 4.5 g/dL (6.4-8.2)
[2021-10-13] MEDS: InsuLIN REG 1unit/0.01ml Soln (100units/ml) SC SCH ×2 (06:00)
[2021-10-13] MEDS: ACETYLCYSTEINE 20%(200MG/ML) SOL 4ML NEB SCH (06:04)
[2021-10-13] MEDS: ALBUTEROL SULF 2.5 MG/0.5ML(0.5%) NEB SOLN NEB SCH (06:04)
[2021-10-13] MEDS: ACCU-CHEK COMFORT CURVE STRIP VI SCH ×2 (06:25)
[2021-10-13] MEDS: SUCRALFATE 1 GM/10 ML ORAL SUSP PO SCH (07:00)
[2021-10-13] MEDS ORDERED: MORPHINE SULFATE INJECTION 2 MG/ML SYRG IV PRN (10:00)
[2021-10-13] MEDS ORDERED: LORazepam 2MG/ML-1ML VIAL IV PRN (10:00)
== END 2021-10-13 17:21 | DRG 720 ==
LOC: EDBD 18:28 → ER 18:28 → OVERFLOW 09-25 05:35 → CENTRAL 09-25 06:30 → WEST WING 09-28 07:37 → ICU WEST 09-29 04:20
PROVIDERS: ADMIT Nurse Practitioner Family; ATTEND Family Medicine
PROC: 30233N0 Transfusion of Autologous Red Blood Cells into Peripheral Vein, Percutaneous Approach (ICD-10-PCS; 2021-09-26)
PROC: 0DB58ZX Excision of Esophagus, Via Natural or Artificial Opening Endoscopic, Diagnostic (ICD-10-PCS; 2021-09-27)
PROC: 0DB68ZX Excision of Stomach, Via Natural or Artificial Opening Endoscopic, Diagnostic (ICD-10-PCS; 2021-09-27)
PROC: 0DB98ZX Excision of Duodenum, Via Natural or Artificial Opening Endoscopic, Diagnostic (ICD-10-PCS; 2021-09-27)
PROC: 5A1955Z Respiratory Ventilation, Greater than 96 Consecutive Hours (ICD-10-PCS; principal; 2021-09-29)
PROC: 02HV33Z Insertion of Infusion Device into Superior Vena Cava, Percutaneous Approach (ICD-10-PCS; 2021-09-29)
PROC: 0BH17EZ Insertion of Endotracheal Airway into Trachea, Via Natural or Artificial Opening (ICD-10-PCS; 2021-09-29)
PROC: 0W9930Z Drainage of Right Pleural Cavity with Drainage Device, Percutaneous Approach (ICD-10-PCS; 2021-09-30)
PROC: 0BC18ZZ Extirpation of Matter from Trachea, Via Natural or Artificial Opening Endoscopic (ICD-10-PCS; 2021-09-30)
PROC: 0BCB8ZZ Extirpation of Matter from Left Lower Lobe Bronchus, Via Natural or Artificial Opening Endoscopic (ICD-10-PCS; 2021-09-30)
PROC: 0BC68ZZ Extirpation of Matter from Right Lower Lobe Bronchus, Via Natural or Artificial Opening Endoscopic (ICD-10-PCS; 2021-09-30)
DX: A41.01 Sepsis due to Methicillin susceptible Staphylococcus aureus (principal); J96.01 Acute respiratory failure with hypoxia; R65.21 Severe sepsis with septic shock; J86.9 Pyothorax without fistula; E43 Unspecified severe protein-calorie malnutrition; N17.9 Acute kidney failure, unspecified; L89.153 Pressure ulcer of sacral region, stage 3; J15.1 Pneumonia due to Pseudomonas; D62 Acute posthemorrhagic anemia; E87.1 Hypo-osmolality and hyponatremia; D63.8 Anemia in other chronic diseases classified elsewhere; N39.0 Urinary tract infection, site not specified; T83.511A Infection and inflammatory reaction due to indwelling urethral catheter, initial encounter; Z20.822 Contact with and (suspected) exposure to COVID-19; B96.4 Proteus (mirabilis) (morganii) as the cause of diseases classified elsewhere; K44.9 Diaphragmatic hernia without obstruction or gangrene; D50.9 Iron deficiency anemia, unspecified; R62.7 Adult failure to thrive; K22.10 Ulcer of esophagus without bleeding; Z74.01 Bed confinement status; Z79.4 Long term (current) use of insulin; Z79.84 Long term (current) use of oral hypoglycemic drugs; Z68.20 Body mass index [BMI] 20.0-20.9, adult; Z82.49 Family history of ischemic heart disease and other diseases of the circulatory system; Z99.11 Dependence on respirator [ventilator] status; Z86.16 Personal history of COVID-19; B96.5 Pseudomonas (aeruginosa) (mallei) (pseudomallei) as the cause of diseases classified elsewhere
CPT/HCPCS: 36415; 36569; 36600; 70450; 71045; 71275; 74177; 76942; 80048; 80053; 80202; 81001; 82040; 82270; 82570; 82805; 82962; 83036; 83605; 83690; 83735; 83986; 84100; 84156; 84300; 84478; 84484; 85007; 85014; 85018; 85025; 85027; 85610; 85652; 85730; 86703; 86850; 86900; 86901; 86920; 87040; 87070; 87077; 87081; 87086; 87088; 87147; 87186; 87205; 87426; 89051; 93005; 94002; 94003; 94640; 96365; 96367; 96375; A4223; C1729; C9113; G0378; J0171; J0330; J0690; J0696; J1815; J2185; J2250; J2405; J2543; J3490; J7060; P9047